=== PATIENT | female | born 1950 | race Caucasian/White ===

== ENCOUNTER → 2018-03-11 | Outpatient (CLI) | payer MEDICARE | END | disposition home or self-care (01) | LOC: CFH 08:17 | PROVIDERS: ATTEND Nurse Practitioner Family | DX: Z13.820 Encounter for screening for osteoporosis (principal); N95.9 Unspecified menopausal and perimenopausal disorder | CPT/HCPCS: 77080 ==

== ENCOUNTER 2019-10-10 07:08 | Outpatient (CLI) | payer OTHER ==
[2019-10-10] MEDS ORDERED: LIDOCAINE-MPF 1%, 5ML ONE (07:39)
[2019-10-10] MEDS ORDERED: ALPRazolam 1MG TAB ONE (08:00)
[2019-10-10] MEDS ORDERED: GADOTERATE 2.5 MMOL/5 ML VIAL ONE (09:14)
== END 2019-10-10 23:59 | disposition home or self-care (01) ==
LOC: RAD 07:08
PROVIDERS: ATTEND Orthopaedic Surgery
DX: M25.511 Pain in right shoulder (principal); M19.011 Primary osteoarthritis, right shoulder; M75.101 Unspecified rotator cuff tear or rupture of right shoulder, not specified as traumatic; Z90.49 Acquired absence of other specified parts of digestive tract; Z98.890 Other specified postprocedural states; Z88.2 Allergy status to sulfonamides; Z88.5 Allergy status to narcotic agent; Z88.8 Allergy status to other drugs, medicaments and biological substances; Z79.899 Other long term (current) drug therapy
CPT/HCPCS: 23350; 73040; 73222; A9575